=== PATIENT | female | born 1965 | race Caucasian/White ===

== ENCOUNTER → 2016-09-20 | Outpatient (CLI) | payer BC ==
--- NOTE | 2016-09-23 14:13 | Diagnostic Imaging Report ---
Bilateral screening mammogram. The current study was also evaluated with a Computer Aided Detection (CAD) system. INDICATION: Screening. No current complaints stated on the questionnaire. COMPARISON: 11/04/2014. FINDINGS: The breasts are composed of scattered fibroglandular densities. There are occasional benign-appearing calcifications. Allowing for technique and positional differences, no suspicious change is seen. IMPRESSION: No significant change. ACR BI-RADS Category 2: Benign findings. Result letter will be mailed to the patient. Note: At least 10% of breast cancer is not imaged by mammography. Dictated by: Dictated on workstation # [id number]
== END ==
LOC: RAD 10:00
PROVIDERS: ATTEND Family Medicine
DX: Z12.31 Encounter for screening mammogram for malignant neoplasm of breast (principal)
CPT/HCPCS: 77067

== ENCOUNTER 2016-12-15 20:36 | Emergency (ER) | payer BC | END 2016-12-15 20:53 | disposition left against medical advice (07) | LOC: EDUNIT# 20:36 → ER 20:38 | DX: S61.211D Laceration without foreign body of left index finger without damage to nail, subsequent encounter (principal); X58.XXXD Exposure to other specified factors, subsequent encounter ==

== ENCOUNTER 2017-05-12 05:38 | Outpatient (CLI) | payer BC ==
[~2017-05-12] VITALS: Ht 167.6 cm; Wt 84.4 kg
== END 2017-05-12 13:53 ==
LOC: PREOP 05:38
PROVIDERS: ATTEND Surgery
DX: Z01.818 Encounter for other preprocedural examination (principal); Z12.11 Encounter for screening for malignant neoplasm of colon; K60.3 Anal fistula

== ENCOUNTER 2017-05-15 08:29 | Day surgery (SDC) | payer BC ==
[~2017-05-15] VITALS: Ht 167.6 cm; Wt 84.4 kg
[2017-05-15] MEDS ORDERED: NS (IVPB) 50 ML ONE (09:19)
[2017-05-15] MEDS ORDERED: ceFAZolin 1,000 MG (ANCEF) VIAL ONE (09:19)
[2017-05-15] MEDS ORDERED: ceFAZolin INJECTION 1,000 MG in NS (IVPB) 50 ML IV ONE (09:45)
[2017-05-15 09:49] VITALS: BP 122/77
[2017-05-15] MEDS: LACTATED RINGERS 1,000 ML IV PRN ×2 (09:52→12:00)
--- NOTE | 2017-05-15 10:49 | Progress Note-Pre Operative ---
Pre-Operative Progress Note H&P Reviewed The H&P was reviewed, patient examined and no changes noted. Date Seen by Provider: May 15, 2017 Time Seen by Provider: 10:30 Date H&P Reviewed: May 15, 2017 Time H&P Reviewed: :30 Pre-Operative Diagnosis: stool incontinence, anal drainage LIV MOLINA MD May 15, 2017 10:49
[2017-05-15] MEDS ORDERED: ONDANSETRON 4 MG/2 ML (SDV) Z0FRAN IV PRN (11:00)
[2017-05-15] MEDS ORDERED: HYDROcodone/APAP 5 MG/325 MG (LORTAB) TAB PO PRN (11:00)
[2017-05-15] MEDS ORDERED: ACETAMINOPHEN 325 MG TABLET/CAPLET (TYLENOL) PO PRN (11:00)
[2017-05-15] MEDS ORDERED: morphine INJ 10 MG/ML 1ML (SYR OR VIAL) IV PRN (11:00)
[2017-05-15] MEDS ORDERED: BUPIVACAINE 0.5% 30 ML (SENSORCAINE) VIAL ONE (11:03)
[2017-05-15] MEDS ORDERED: LIDOCAINE/EPI 1%-1:200,000 (XYLOCAINE) 10 ML VIAL ONE (11:03)
[2017-05-15] MEDS ORDERED: BUP/EPI 0.5% 1:200,000 (SENSORCAINE) 30 ML VIAL ONE (11:03)
[2017-05-15] MEDS ORDERED: MIDAZOLAM 2 MG/2 ML (VERSED) VIAL ONE (11:11)
[2017-05-15] MEDS ORDERED: fentaNYL INJECTION 100 MCG/2 ML AMP ONE (11:13)
[2017-05-15] MEDS ORDERED: LACTATED RINGERS 0 ML IV ONE (11:26)
[2017-05-15] MEDS ORDERED: proPOfol 200 MG/20 ML (DIPRIVAN) VIAL IV ONE (11:26)
[2017-05-15] MEDS ORDERED: ONDANSETRON 4 MG/2 ML (SDV) Z0FRAN ONE (11:26)
[2017-05-15] MEDS ORDERED: LIDOCAINE PF 2% 5 ML (XYLOCAINE) VIAL ONE (11:26)
[2017-05-15] MEDS ORDERED: SEVOFLURANE (ULTANE) 15 ML INHAL SOLN ONE ×6 (11:26→13:04)
[2017-05-15] MEDS ORDERED: DEXAMETHASONE 10 MG/ML (DECADRON) 1 ML VIAL ONE (11:26)
--- NOTE | 2017-05-15 12:41 | Progress Note-Post Operative ---
Post-Operative Progess Note Surgeon (s)/Neurology Nurse (s) Surgeon SUPRIYA MOLINA M.D. Neurology Nurse: JAYLYN LEE CRATE BUILDER Pre-Operative Diagnosis stool incontinence, anal drainage Post-Operative Diagnosis CHONRONIC STAGE III INTERNAL AND EXTERNAL HEMORRHOIDS, NORMAL COLON AND RECTUM Procedure & Operative Findings Date of Procedure 05/15/17 Procedure Performed/Findings ANAL EXAM UNDER ANESTHESIA, HEMORRHOIDECTOMY, COLONOSCOPY Anesthesia Type GET Estimated Blood Loss Estimated blood loss (mL): MINIMAL Specimens/Packing Specimens Removed HEMORRHOIDS JAYLYN LEE CRATE BUILDER May 15, 2017 12:41 pm
[2017-05-15] MEDS ORDERED: OXYC-201 PO (12:43)
--- NOTE | 2017-05-15 12:47 | Discharge Inst-Surgical ---
D/C Lap Instructions-KIDO New, Converted, or Re-Newed RX: RX on Chart Follow Up Appt in 2 weeks Activity as tolerated No driving for 24 hours No driving while on pain medications Incentive Spirometry use every 2 hours while awake High fiver diet (>25 grams daily) 64 ounces of fluid daily Sitz bath four times daily and after every bowel movement Stool softeners twice to three times daily for soft stools Symptoms to Report: Fever over 101 degree F, Nausea/Vomiting Infection Signs and Symptoms to report: Increased redness, Foul odor of wound, Increased drainage Bathing instructions: May shower If any problems/questions: Contact your physician or go to Emergency Room JAYLYN LEE APRN May 15, 2017 12:47 pm
[2017-05-15] MEDS ORDERED: fentaNYL INJECTION 100 MCG/2 ML AMP IVP PRN (13:15)
[2017-05-15] MEDS ORDERED: HYDROmorphone (DILAUDID) 2 MG/ML VIAL IVP PRN (13:15)
[2017-05-15] MEDS ORDERED: morphine INJ 10 MG/ML 1ML (SYR OR VIAL) IVP PRN (13:15)
[2017-05-15 14:00] VITALS: BP 127/81
[2017-05-15 14:30] VITALS: BP 122/80
[2017-05-15 14:45] VITALS: BP 122/80
[2017-05-15 14:55] VITALS: BP 130/83
--- NOTE | 2017-05-15 17:58 | OPERATIVE REPORT ---
DATE OF SERVICE: 05/15/2017 ATTENDING PRIMARY CARE PHYSICIAN: Dr. Gasca. PREOPERATIVE DIAGNOSES: Stool incontinence, anal drainage, hemorrhoids, screening colonoscopy. POSTOPERATIVE DIAGNOSES: Chronic stage III external and internal hemorrhoidal cushions. Remainder of the rectum and colon were normal. PROCEDURE: Anal exam under anesthesia, hemorrhoidectomy, colonoscopy. SURGEON: Liv Kumar MD CONTRACT OFFICER: Praveen Vivas APRN ANESTHESIA: General laryngeal mask airway. ESTIMATED BLOOD LOSS: Minimal. FINDINGS: Chronic stage III external and internal hemorrhoids. There was a palpable external and internal anal sphincters and the tone appeared to be normal; however, we were unsure of the adequacy of the tone. There were no palpable masses. There were no fistulas or fissures identified. On colonoscopy, the rectum and colon were normal. There were no polyps or any neoplasms identified. DISPOSITION: The patient tolerated the procedure well. INDICATIONS: The patient is a 51-year-old female with perianal drainage and persistent rash in the anoderm region. She reports approximately in 2003 she had her second child and during that time frame, she developed an anal fissure. The anal fissure was symptomatic and because of this, she did opt for surgical therapy, which included a lateral internal sphincterotomy performed in September 2003. After surgery, her fistula did heal. However, over the years and different types of diet, she has noticed development of that feels to be a wetness sensation and leakage around the anal region. She also reports because the drainage there was a significant rash. Sometimes the leakage is stool stain; however, sometimes clear. We are unsure if this is a stool incontinence from her previous sphincterotomy versus the fistula formation. She has also not had a colonoscopy up to this point in her life. She does report a family history of colon cancer with her mother having the disease. DESCRIPTION OF PROCEDURE: The patient was brought to the operating room and after adequate IV pain and sedative medications and general laryngeal mask airway intubation, the patient was placed in the lithotomy position. The perineum was then prepped and draped in standard surgical fashion. A 0.5% Marcaine with epinephrine was then used to proceed to anesthetizing of the hemorrhoidal cushions. Before this, a digital rectal examination was performed and the previous scar from the lateral internal sphincterotomy was identified. There was a palpable ring; however, under anesthesia we were unsure of the competency of the sphincter tone. We then proceeded with the pudendal nerve block. The speculum was then placed in the anus. The anal canal and anoderm were examined. There were no abscesses or fistula tract identified. There were a stage III external and internal hemorrhoids in three different cushions identified, which appeared to be symptomatic. There were no fissures identified. We then proceeded with a formal excision of the hemorrhoidal cushions. All three cushions were excised in a systematic fashion. We first proceeded with placement of a suture just above the internal hemorrhoidal cushion using a 2-0 Vicryl suture. The external and internal hemorrhoidal cushion combination were then excised en bloc using Sonicision with visualization of good hemostasis. The mucosa and anoderm were then reapproximated using the 2-0 Vicryl previously placed suture. We then proceeded with excision and closure of the two other hemorrhoidal cushions in a similar fashion with visualization of good hemostasis. We then proceeded with the colonoscopy portion of the procedure. The endoscope was intubated to the anus and rectum gently insufflated. The endoscope was then advanced to the valves of Valero of the rectum with no polyps or any neoplasms identified. We then proceeded through the sigmoid colon where no diverticulosis identified. The endoscope was then advanced to the remainder of the descending, transverse, ascending colon and the cecum. These segments were normal. There were no polyps or any neoplasms identified. The endoscope was slowly withdrawn taking a second look and suctioning of residual air with no additional findings. The patient tolerated the procedure well. We will start IV and oral pain medications as well as a clear liquid diet. Once she is tolerating clears and has good pain control with oral pain medications and ambulating well, we will discharge her home. She will be instructed to proceed with sitz baths q.i.d. as well as after every bowel movement as well as proceed with stool softeners and fiber supplementation to promote soft stools on a daily basis. She will also need adequate pain control, which we will prescribe to her. We will have her follow up in approximately two weeks. Job ID: [id number] DocumentID: [id number] Dictated Date: 05/15/2017 12:58:21 Rolling Chair Pusher Date: 05/15/2017 17:57:23 Dictated By: LVI KUMAR MD
--- OUTSIDE RECORDS SUMMARY | 2017-05-16 10:44 | XMS REPORT | Continuity of Care Document ---
Author Author [facility] Organization [facility] Address Unknown Phone Unavailable Allergies Active Description Code Type Severity Reaction Onset Reported/Identified Relationship to Patient Clinical Status Yes No Allergy Information Available [id number] Drug Allergy Unknown N/A 2015 Medications There is no data. Problems Date Dx Coded Attending Type Code Diagnosis Diagnosed By 08/07/2014 Ot 793.80 08/07/2014 Ot V76.12 08/07/2014 Ot 611.72 08/07/2014 Ot V76.12 08/07/2014 Ot 721.0 08/07/2014 Ot V76.12 11/17/2014 REBECCA PARKER MD Ot V76.12 06/13/2015 Ot V76.12 06/13/2015 Ot 721.0 06/13/2015 Ot V76.12 06/13/2015 REBECCA PARKER MD Ot V76.12 06/13/2015 REBECCA PARKER MD Ot R10.13 06/19/2015 REBECCA PARKER MD Ot R10.13 06/26/2015 REBECCA PARKER MD Ot R10.13 03/07/2016 Ot 721.0 CERVICAL SPONDYLOSIS 03/07/2016 Ot V76.12 OTH SCREEN MAMMO-MALIGN NEOPLASM OF HONG 03/07/2016 REBECCA PARKER MD Ot V76.12 OTH SCREEN MAMMO-MALIGN NEOPLASM OF HONG 03/07/2016 REBECCA PARKER MD Ot R10.13 EPIGASTRIC PAIN 03/07/2016 Ot 721.0 CERVICAL SPONDYLOSIS 03/07/2016 Ot V76.12 OTH SCREEN MAMMO-MALIGN NEOPLASM OF HONG 03/07/2016 REBECCA PARKER MD Ot V76.12 OTH SCREEN MAMMO-MALIGN NEOPLASM OF HONG 03/07/2016 REBECCA PARKER MD Ot R10.13 EPIGASTRIC PAIN 09/17/2016 Ot V76.12 OTH SCREEN MAMMO-MALIGN NEOPLASM OF HONG 09/17/2016 REBECCA PARKER MD Ot V76.12 OTH SCREEN MAMMO-MALIGN NEOPLASM OF HONG 09/17/2016 REBECCA PARKER MD Ot R10.13 EPIGASTRIC PAIN 09/23/2016 REBECCA PARKER MD Ot Z12.31 ENCNTR SCREEN MAMMOGRAM FOR MALIGNANT NE 09/24/2016 REBECCA PARKER MD Ot Z12.31 ENCNTR SCREEN MAMMOGRAM FOR MALIGNANT NE 10/02/2016 REBECCA PARKER MD Ot Z12.31 ENCNTR SCREEN MAMMOGRAM FOR MALIGNANT NE 12/15/2016 Ot V76.12 OTH SCREEN MAMMO-MALIGN NEOPLASM OF HONG 12/15/2016 REBECCA PARKER MD Ot V76.12 OTH SCREEN MAMMO-MALIGN NEOPLASM OF HONG 12/15/2016 REBECCA PARKER MD Ot R10.13 EPIGASTRIC PAIN 12/15/2016 REBECCA PARKER MD Ot Z12.31 ENCNTR SCREEN MAMMOGRAM FOR MALIGNANT NE 12/15/2016 LUIGI KNAPP MD Ot S61.211D LACERATION W/O FB OF L IDX FNGR W/O GLORIA 12/15/2016 LUIGI KNAPP MD Ot X58.XXXD EXPOSURE TO OTHER SPECIFIED FACTORS, SUB 12/17/2016 LUIGI KNAPP MD Ot S61.211D LACERATION W/O FB OF L IDX FNGR W/O GLORIA 12/17/2016 LUIGI KNAPP MD Ot X58.XXXD EXPOSURE TO OTHER SPECIFIED FACTORS, SUB 12/21/2016 LUIGI KNAPP MD Ot S61.211D LACERATION W/O FB OF L IDX FNGR W/O GLORIA 12/21/2016 LUIGI KNAPP MD Ot X58.XXXD EXPOSURE TO OTHER SPECIFIED FACTORS, SUB 12/31/2016 Ot V76.12 OTH SCREEN MAMMO-MALIGN NEOPLASM OF HONG 12/31/2016 REBECCA PARKER MD Ot V76.12 OTH SCREEN MAMMO-MALIGN NEOPLASM OF HONG 12/31/2016 REBECCA PARKER MD Ot R10.13 EPIGASTRIC PAIN 12/31/2016 REBECCA PARKER MD Ot Z12.31 ENCNTR SCREEN MAMMOGRAM FOR MALIGNANT NE Procedures There is no data. Results There is no data. Encounters ACCT No. Visit Date/Time Discharge Status Pt. Type Provider Facility Loc./Unit Complaint [id number] 12/15/2016 20:38:00 12/15/2016 20:53:00 DIS Emergency LUIGI KNAPP MD [facility] ER L INDEX FINGER LAC [id number] 09/20/2016 10:00:00 09/20/2016 23:59:59 CLS Outpatient REBECCA PARKER MD [facility] RAD SCREENING Z12.13 [id number] 06/13/2015 08:21:00 06/13/2015 23:59:59 CLS Outpatient REBECCA PARKER MD [facility] RAD DYSPEPSIA [id number] 11/04/2014 11:13:00 11/04/2014 23:59:59 CLS Outpatient REBECCA PARKER MD [facility] RAD SCREENING [id number] 05/15/2017 09:30:00 PEN Preadmit LIV MOLINA MD [facility] SDC ANAL FISTULA, SCREENING COLONOSCOPY [id number] 09/09/2011 08:36:00 Document Registration [id number] 10/22/2010 15:27:00 Document Registration [id number] 06/22/2010 10:17:00 Document Registration [id number] 04/03/2009 09:07:00 Document Registration [id number] 03/22/2009 14:46:00 Document Registration
== END 2017-05-15 14:55 | disposition home or self-care (01) ==
LOC: SDC 08:29
PROVIDERS: ATTEND Surgery
DX: K64.2 Third degree hemorrhoids (principal); R15.9 Full incontinence of feces
CPT/HCPCS: 84703; 87081

== ENCOUNTER 2017-09-09 18:44 | Emergency (ER) | payer BC ==
[~2017-09-09] VITALS: Ht 165.1 cm; Wt 81.6 kg
[~2017-09-09 18:44] MED LIST: OXYC-201 PO
--- OUTSIDE RECORDS SUMMARY | 2017-09-09 18:49 | XMS REPORT | Continuity of Care Document ---
Author Author [facility] Organization [facility] Address Unknown Phone Unavailable Allergies Active Description Code Type Severity Reaction Onset Reported/Identified Relationship to Patient Clinical Status Yes No Allergy Information Available [id number] Drug Allergy Unknown N/A 2015 Yes No Known Drug Allergies [id number] Drug Allergy Unknown N/A 05/12/2017 Medications There is no data. Problems Date [...] Ot R10.13 EPIGASTRIC PAIN 12/31/2016 REBECCA PARKER MD, Ot Z12.31 ENCNTR SCREEN MAMMOGRAM FOR MALIGNANT NE 05/08/2017 REBECCA PARKER MD, Ot V76.12 OTH SCREEN MAMMO-MALIGN NEOPLASM OF HONG 05/08/2017 REBECCA PARKER MD Ot R10.13 EPIGASTRIC PAIN 05/08/2017 REBECCA PARKER MD, Ot Z12.31 ENCNTR SCREEN MAMMOGRAM FOR MALIGNANT NE 05/12/2017 LIV MOLINA MD Ot K60.3 ANAL FISTULA 05/12/2017 LIV MOLINA MD Ot Z01.818 ENCOUNTER FOR OTHER PREPROCEDURAL EXAMIN 05/12/2017 LIV MOLINA MD Ot Z12.11 ENCOUNTER FOR SCREENING FOR MALIGNANT NE 05/14/2017 LIV MOLINA MD Ot K60.3 ANAL FISTULA 05/14/2017 LIV MLOINA MD Ot Z01.818 ENCOUNTER FOR OTHER PREPROCEDURAL EXAMIN 05/14/2017 LIV MOLINA MD Ot Z12.11 ENCOUNTER FOR SCREENING FOR MALIGNANT NE 05/15/2017 LIV MOLINA MD Ot K64.2 THIRD DEGREE HEMORRHOIDS 05/15/2017 LIV MOLINA MD Ot R15.9 FULL INCONTINENCE OF FECES 05/29/2017 REBECCA PARKER MD, Ot V76.12 OTH SCREEN MAMMO-MALIGN NEOPLASM OF HONG 05/29/2017 REBECCA PARKER MD Ot R10.13 EPIGASTRIC PAIN 05/29/2017 REBECCA PARKER MD, Ot Z12.31 ENCNTR SCREEN MAMMOGRAM FOR MALIGNANT NE Procedures There is no data. Results Test Result Range Urine beta human chorionic gonadotropin (hCG) measurement - 05/15/17 09:00 Urine beta human chorionic gonadotropin (hCG) measurement NEGATIVE NEGATIVE Methicillin resistant Staphylococcus aureus (MRSA) screening culture - 09:15 Methicillin resistant Staphylococcus aureus (MRSA) screening culture NEG NRG Encounters ACCT No. Visit Date/Time Discharge Status Pt. Type Provider Facility Loc./Unit Complaint [id number] 05/15/2017 08:29:00 05/15/2017 14:55:00 DIS Outpatient LIV MOLINA MD [facility] SDC ANAL FISTULA, SCREENING COLONOSCOPY [id number] 05/12/2017 05:38:00 05/12/2017 13:53:00 DIS Outpatient LIV MOLINA MD [facility] PREOP ANAL FISTULA,SCREENING [id number] 12/15/2016 20:38:00 12/15/2016 20:53:00 DIS Emergency LUIGI KNAPP MD [facility] ER L INDEX FINGER LAC [id number] 09/20/2016 10:00:00 09/20/2016 23:59:59 CLS Outpatient REBECCA PARKER MD [facility] RAD SCREENING Z12.13 [id number] 06/13/2015 08:21:00 06/13/2015 23:59:59 CLS Outpatient REBECCA PARKER MD [facility] RAD DYSPEPSIA [id number] 11/04/2014 11:13:00 11/04/2014 23:59:59 CLS Outpatient REBECCA PARKER MD [facility] RAD SCREENING [id number] 09/09/2011 08:36:00 Document Registration [id number] 10/22/2010 15:27:00 Document Registration [id number] 06/22/2010 10:17:00 Document Registration [id number] 04/03/2009 09:07:00 Document Registration [id number] 03/22/2009 14:46:00 Document Registration
[2017-09-09] MEDS ORDERED: ASPIRIN 81 MG CHEW (CHILDREN'S ASA) PO ONE ×2 (19:00)
--- NOTE | 2017-09-09 19:12 | ED Cardiac General ---
History of Present Illness General Chief Complaint: Chest Pain Stated Complaint: CHEST PAIN Nursing Triage Note: PT TO ROOM 1 PT CO OF CHEST DISCOMFORT RATES 3-4/10, STATES FEELS FULL IN NECK AREA Source: patient, spouse (bharat) Exam Limitations: no limitations History of Present Illness Date Seen by Provider: Sep 09, 2017 Time Seen by Provider: 18:57 Initial Comments The patient presents to the ER by private conveyance with a chief complaint she had some intermittent palpitations going on for the past few years that used to be about once every 6 months but have been gotten more freely and at where she had a couple in the last couple months. They will last about 20-30 minutes take her breath away and make her feel tired and sit down. She says the palpation started about time she got to the ER. She's not having any chest pain but she was having some chest discomfort in her right neck and her right chest and right shoulder at the time of the palpitations. She has no history of coronary disease. She works out eats healthy she is on a vegan diet where she used to be on a full protein diet but she changed to begin to help with her borderline high blood pressure and lose some weight. She does not take any other routine medications, control or pain medicines but she did take a Percocet a couple days ago to help her get some sleep that was left over from a recent hemorrhoidectomy. She has a history of gallbladder removed, fissure repair after childbirth and she had a cyst cut off of her thyroid when she was about [age] year old. Allergies and Home Medications Allergies Coded Allergies: No Known Drug Allergies (Unverified , 05/12/17) Home Medications No Active Prescriptions or Reported Meds Patient Home Medication List Home Medication List Reviewed: Yes Review of Systems Constitutional: No fever, No malaise EENTM: No Blurred Vision, No Double Vision Respiratory: Denies Cough, Denies Shortness of Air Cardiovascular: See HPI, Chest Pain; Denies Edema; Irregular Heart Rate, Palpitations; Denies Syncope Gastrointestinal: Denies Abdomen Distended, Denies Abdominal Pain, Denies Constipated, Denies Diarrhea, Denies Nausea, Denies Poor Fluid Intake, Denies Vomiting Genitourinary: Denies Burning, Denies Discharge Musculoskeletal: No back pain, No joint pain Skin: No pruritus, No rash Psychiatric/Neurological: Denies Headache, Denies Numbness, Denies Paresthesia Past Dkoxmzw-Yfiogc-Lkwygp Hx Patient Social History Alcohol Use: Denies Use Recreational Drug Use: No Smoking Status: Never a Smoker Former Smoker, Quit: May 12, 1997 Recent Foreign Travel: No Contact w/Someone Who Travel: No Recent Infectious Disease Expo: No Recent Hopitalizations: No Seasonal Allergies Seasonal Allergies: No Past Medical History Gallbladder, Tonsillectomy Physical Exam Vital Signs Vital Signs - First Documented 09/09/17 18:45 Temp 97.3 Pulse 88 Resp 18 B/P (MAP) 126/90 (102) Pulse Ox 98 Capillary Refill : Less Than 3 Seconds General Appearance: No Apparent Distress, WD/WN HEENT: PERRL/EOMI, Normal ENT Inspection, Pharynx Normal Neck: Full Range of Motion, Normal Inspection, Non Tender, Supple Respiratory: Chest Non Tender, Lungs Clear, Normal Breath Sounds, No Accessory Muscle Use, No Respiratory Distress Cardiovascular: Regular Rate, Rhythm, No Edema, No Gallop, No JVD, No Murmur, Normal Peripheral Pulses Gastrointestinal: Non Tender, Soft Extremity: Normal Capillary Refill, Normal Inspection, Non Tender, No Calf Tenderness, No Pedal Edema Neurologic/Psychiatric: Alert, Oriented x3 Skin: Normal Color, Warm/Dry Progress/Results/Core Measures Results/Orders Lab Results Laboratory Tests Test 09/09/17 18:50 Range/Units White Blood Count 9.5 4.3-11.0 10^3/uL Red Blood Count 4.41 4.35-5.85 10^6/uL Hemoglobin 13.5 11.5-16.0 G/DL Hematocrit 39 35-52 % Mean Corpuscular Volume 88 80-99 FL Mean Corpuscular Hemoglobin 31 25-34 PG Mean Corpuscular Hemoglobin Concent 35 32-36 G/DL Red Cell Distribution Width 12.9 10.0-14.5 % Platelet Count 212 130-400 10^3/uL Mean Platelet Volume 11.2 H 7.4-10.4 FL Neutrophils (%) (Auto) 62 42-75 % Lymphocytes (%) (Auto) 29 12-44 % Monocytes (%) (Auto) 8 0-12 % Eosinophils (%) (Auto) 1 0-10 % Basophils (%) (Auto) 0 0-10 % Neutrophils # (Auto) 5.9 1.8-7.8 X 10^3 Lymphocytes # (Auto) 2.8 1.0-4.0 X 10^3 Monocytes # (Auto) 0.7 0.0-1.0 X 10^3 Eosinophils # (Auto) 0.1 0.0-0.3 10^3/uL Basophils # (Auto) 0.0 0.0-0.1 10^3/uL Prothrombin Time 13.1 12.2-14.7 SEC INR Comment 1.0 0.8-1.4 Activated Partial Thromboplast Time 32 24-35 SEC D-Dimer 0.30 0.00-0.49 UG/ML Sodium Level 141 135-145 MMOL/L Potassium Level 3.6 3.6-5.0 MMOL/L Chloride Level 107 98-107 MMOL/L Carbon Dioxide Level 24 21-32 MMOL/L Anion Gap 10 5-14 MMOL/L Blood Urea Nitrogen 8 7-18 MG/DL Creatinine 0.75 0.60-1.30 MG/DL Estimat Glomerular Filtration Rate > 60 BUN/Creatinine Ratio 11 Glucose Level 136 H 70-105 MG/DL Calcium Level 9.4 8.5-10.1 MG/DL Magnesium Level 2.0 1.8-2.4 MG/DL Total Bilirubin 0.4 0.1-1.0 MG/DL Aspartate Amino Transf (AST/SGOT) 20 5-34 U/L Alanine Aminotransferase (ALT/SGPT) 17 0-55 U/L Alkaline Phosphatase 66 40-136 U/L Myoglobin 20.4 10.0-92.0 NG/ML Troponin I < 0.30 <0.30 NG/ML B-Type Natriuretic Peptide 36.3 <100.0 PG/ML Total Protein 7.6 6.4-8.2 GM/DL Albumin 4.3 3.2-4.5 GM/DL My Orders Orders - ARIALUIGI J O2 (09/09/17 18:57) Aspirin Chewable Tablet (Baby Aspirin Ch (09/09/17 19:00) Saline Lock/Iv-Start (09/09/17 18:57) Orthostatic Vital Signs (Adult (09/09/17 18:57) Medications Given in ED Current Medications Medications Dose Ordered Sig/Alexandra Route Start Time Stop Time Status Last Admin Dose Admin Aspirin 324 mg ONCE ONCE PO 09/09/17 19:00 09/09/17 19:01 DC 09/09/17 19:35 324 MG Vital Signs/I&O 09/09/17 09/09/17 18:45 19:47 Temp 97.3 Pulse 88 90 88 90 Resp 18 B/P (MAP) 126/90 (102) 113/79 (90) 122/81 (95) 111/80 (90) Pulse Ox 98 Blood Pressure Mean: 102 Progress Progress Note : Time: 19:36 Progress Note We'll plan to make referral for cardiology if we can't find anything acutely wrong and her initial workup for outpatient workup and probably heart monitoring. Initial ECG Impression Date: Sep 09, 2017 Initial ECG Impression Time: 18:47 Initial ECG Rate: 90 Initial ECG Rhythm: Normal Sinus Initial ECG Intervals: Normal Initial ECG Impression: Normal, Nonspecific Changes Initial ECG Comparisson: No Previous ECG Available Comment No acute ST elevation/depression or dysrhythmia seen. Diagnostic Imaging Diagonstic Imaging: Xray Plain Films/CT/US/NM/MRI: chest Reviewed: Reviewed by Me Departure Impression Primary Impression: Heart palpitations Additional Impression: Chest pain Qualified Codes: R07.89 - Other chest pain Disposition: 01 HOME, SELF-CARE Condition: Stable Departure-Patient Inst. Decision time for Depature: 20:10 Referrals: YARI CAICEDO MD [facility] REBECCA PARKER MD (PCP/Family) Primary Care Physician Patient Instructions: Palpitations (DC) Add. Discharge Instructions: Call Dr Caicedo, Cardiology in the AM and request an appt to discuss the palpitations and appropriate workup. If the pain comes back and persists then you should go to the nearest ER for evaluation. Your PCP can also be helpful working this up. Reduce or discontinue your caffeine intake. All discharge instructions reviewed with patient and/or family. Voiced understanding. Scripts No Active Prescriptions or Reported Meds Copy Copies To 1: YARI CAICEDO MD [facility]; REBECCA PARKER MD, TITUS J Sep 09, 2017 19:12
[2017-09-09 19:23] LABS: BASOPHILS % (AUTO) 0 % (0-10); EOSINOPHILS # (AUTO) 0.1 10^3/uL (0.0-0.3); EOSINOPHILS % (AUTO) 1 % (0-10); HEMATOCRIT 39 % (35-52); HEMOGLOBIN 13.5 G/DL (11.5-16.0); LYMPHOCYTES # (AUTO) 2.8 X 10^3 (1.0-4.0); LYMPHOCYTES % (AUTO) 29 % (12-44); MEAN CORPUSCULAR HEMOGLOBIN 31 PG (25-34); MEAN CORPUSCULAR HGB CONC 35 G/DL (32-36); MEAN CORPUSCULAR VOLUME 88 FL (80-99); MEAN PLATELET VOLUME 11.2 FL (7.4-10.4); MONOCYTES # (AUTO) 0.7 X 10^3 (0.0-1.0); MONOCYTES % (AUTO) 8 % (0-12); NEUTROPHILS # (AUTO) 5.9 X 10^3 (1.8-7.8); NEUTROPHILS % (AUTO) 62 % (42-75); PLATELET COUNT 212 10^3/uL (130-400); RED BLOOD COUNT 4.41 10^6/uL (4.35-5.85); RED CELL DISTRIBUTION WIDTH 12.9 % (10.0-14.5); WHITE BLOOD COUNT 9.5 10^3/uL (4.3-11.0)
[2017-09-09 19:35] LABS: PROTHROMBIN TIME PATIENT 13.1 SEC (12.2-14.7)
[2017-09-09 19:44] LABS: ALANINE AMINOTRANSFERASE 17 U/L (0-55); ALBUMIN 4.3 GM/DL (3.2-4.5); ALKALINE PHOSPHATASE 66 U/L (40-136); BILIRUBIN,TOTAL 0.4 MG/DL (0.1-1.0); BUN/CREATININE RATIO 11; CALCIUM 9.4 MG/DL (8.5-10.1); CARBON DIOXIDE 24 MMOL/L (21-32); CHLORIDE 107 MMOL/L (98-107); CREATININE SERUM 0.75 MG/DL (0.60-1.30); GFR ESTIMATED > 60; GLUCOSE 136 MG/DL (70-105); POTASSIUM 3.6 MMOL/L (3.6-5.0); SODIUM 141 MMOL/L (135-145); TOTAL PROTEIN 7.6 GM/DL (6.4-8.2)
[2017-09-09 19:47] VITALS: BP_SYST 111; BP_SYST 113; BP_SYST 122; BP_DIAS 79; BP_DIAS 80; BP_DIAS 81
[2017-09-09 19:52] LABS: MYOGLOBIN SERUM 20.4 NG/ML (10.0-92.0)
--- NOTE | 2017-09-09 20:12 | Diagnostic Imaging Report ---
INDICATION: Chest pain EXAMINATION: Chest 09/09/2017 FINDINGS: The cardiomediastinal silhouette is unremarkable. The pulmonary vasculature is within normal limits. The lungs and pleural spaces are clear. IMPRESSION: No evidence of an acute cardiopulmonary process. Dictated by: Dictated on workstation # [id number]
[2017-09-09 20:21] VITALS: BP 113/74
== END 2017-09-09 20:22 | disposition home or self-care (01) ==
LOC: EDUNIT# 18:44 → ER 18:46
DX: R00.2 Palpitations (principal); R07.89 Other chest pain; Z87.891 Personal history of nicotine dependence; Z90.89 Acquired absence of other organs
CPT/HCPCS: 36415; 71045; 80053; 83735; 83874; 83880; 84484; 85025; 85379; 85610; 85730; 93005; 93041

== ENCOUNTER 2017-10-10 21:00 | Outpatient (CLI) | payer BC | END 2017-10-11 06:35 | disposition home or self-care (01) | LOC: SLEEP 21:00 | PROVIDERS: ATTEND Nurse Practitioner | DX: G47.33 Obstructive sleep apnea (adult) (pediatric) (principal); R06.83 Snoring; R51 Headache | CPT/HCPCS: 95810 ==

== ENCOUNTER → 2017-12-08 | Outpatient (CLI) | payer BC ==
[~2017-12-08] MED LIST changes: -OXYC-201 PO; +OXYC1TAB16 PO
--- NOTE | 2017-12-08 14:41 | Diagnostic Imaging Report ---
Indication: Chest pain PA and lateral views of the chest are obtained. Comparison is made to study of 09/09/2017. FINDINGS: Heart size and pulmonary vascularity are within normal limits, and the lungs are clear, bilaterally. Electronic device is seen anterior to the sternum to left of midline. IMPRESSION: Unremarkable chest. Dictated by: Dictated on workstation # [id number]
== END ==
LOC: RAD 14:23
PROVIDERS: ATTEND Family Medicine
DX: R07.9 Chest pain, unspecified (principal); Z95.818 Presence of other cardiac implants and grafts
CPT/HCPCS: 71046

== ENCOUNTER → 2021-08-01 | Outpatient (CLI) | payer BC ==
--- NOTE | 2021-08-01 14:12 | Diagnostic Imaging Report ---
PROCEDURE: CT head without contrast. TECHNIQUE: Multiple contiguous axial images were obtained through the brain without the use of intravenous contrast. Auto Exposure Controls were utilized during the CT exam to meet ALARA standards for radiation dose reduction. INDICATION: Right-sided headache and ringing in the left ear. No prior studies are available for comparison. The ventricles and sulci are within normal limits. No sulcal effacement or midline shift is detected. No acute intra-axial or extra-axial hemorrhage is detected. Cisterns are patent. Visualized paranasal sinuses demonstrate mucosal thickening in multiple ethmoid air cells. There is mild mucosal thickening of the maxillary sinuses. IMPRESSION: No acute intra-cranial process is detected. Dictated by: Dictated on workstation # [id number]
--- NOTE | 2021-08-01 15:47 | Diagnostic Imaging Report ---
PROCEDURE: US carotid duplex, bilateral. TECHNIQUE: Multiple real-time grayscale images were obtained over the carotid arteries in various projections, bilaterally. Additional spectral analysis and color Doppler duplex images were also obtained. INDICATION: Atrial fibrillation and dizziness. FINDINGS: Very mild plaquing is identified in both carotid systems. Velocities are normal bilaterally. No velocity elevation or stenosis is detected. Both vertebral arteries show antegrade flow. IMPRESSION: No evidence of a hemodynamically significant stenosis. Parameters based on the consensus panel Gonzalez-Scale and Doppler ultrasound criteria published January 2003, Radiology, Volume 229. DOPPLER (peak systolic velocity M/S Right Left CCA 1.34 1.33 ICA Proximal .70 .79 ICA Mid .57 .67 ICA Distal .85 1.36 RATIO .64 1.02 ECA 1.29 1.02 VERT .63 .65 Dictated by: Dictated on workstation # [id number]
== END ==
LOC: RAD 14:15
PROVIDERS: ATTEND Nurse Practitioner Family
DX: J32.9 Chronic sinusitis, unspecified (principal); I48.91 Unspecified atrial fibrillation; H93.90 Unspecified disorder of ear, unspecified ear
CPT/HCPCS: 70450; 93880

== ENCOUNTER 2021-11-13 13:53 | Emergency (ER) | payer BC ==
[~2021-11-13] VITALS: Ht 165 cm; Wt 88.4 kg
--- NOTE | 2021-11-13 14:24 | ED Dyspnea ---
General Chief Complaint: Cardiac/General Problems Stated Complaint: AFIB, Nursing Triage Note: PT TO [facility] 4 WITH C/O SOA SINCE 11/07/21. [facility] SENT PT TO ED TO RULE OUT BLOOD CLOT. PT HX OF AFIB AND HAS BEEN OFF OF MEDS SINCE MAY. PT A&OX4 Source of Information: Patient Exam Limitations: No Limitations History of Present Illness Date Seen by Provider: Nov 13, 2021 Time Seen by Provider: 14:10 Initial Comments Patient is a 56-year-old female who presents to the emergency department today with a chief complaint of feeling short of breath. Patient states that 1 out of every 5 breaths she feels like she cannot take a deep enough breath. She is a patient of Dr. Caicedo and has been seen in the past for her atrial fibrillation. She states over the last several months she has developed what she calls "anaphylaxis" to "everything I put in my mouth". She defines anaphylaxis as a "scratchy throat "a feeling of something "stuck" in her esophagus, and generalized feelings of unwellness. She states she is seeing a physician executive at [facility] in [place] who has diagnosed her with " zero IG A". Her physician executive will not see her again until she is ruled out for a "blood clot". She did do a lot of traveling to [place] over the summer. She took herself off of her anticoagulants and has weaned herself down off of her metoprolol. She is now on 10 mg daily. She is quite hypertensive in the upper 190s over 100 range. She is not hypoxic. Her oxygen saturations are 99%. She denies chest pain, hemoptysis, leg swelling or pain. No history of blood clot. She is currently in a normal sinus rhythm. She called Dr Caicedo's office to ask how she could get r"ruled out" for a blood clot, and they told her if she is SOB to come to the ER. No recent fevers, chills, cough or congestion. No other GI or complaints. All other review of systems reviewed and negative except as stated. Timing/Duration: 1 Week Severity: Moderate Associated Symptoms: Denies Symptoms Allergies and Home Medications Allergies Coded Allergies: No Known Drug Allergies (Unverified , 05/12/17) Patient Home Medication List Home Medication List Reviewed: Yes No Active Prescriptions or Reported Meds Review of Systems Review of Systems Constitutional: see HPI Respiratory: dyspnea on exertion, short of breath Cardiovascular: no symptoms reported Gastrointestinal: no symptoms reported Genitourinary: no symptoms reported Musculoskeletal: no symptoms reported Skin: no symptoms reported All Other Systems Reviewed Negative Unless Noted: Yes Past Ketorus-Vblqje-Vnagog Hx Patient Social History Tobacco Use?: No Substance use?: No Alcohol Use?: No Pt feels they are or have been: No Seasonal Allergies Seasonal Allergies: No Past Medical History Surgery/Hospitalization HX: IGA DEFENCIES Surgeries: Yes (HEMMORHOID) Adenoidectomy, Eye Surgery, Gallbladder, Thyroidectomy Ulcer Physical Exam Vital Signs Vital Signs - First Documented 11/13/21 13:57 Temp 36.2 Pulse 83 Resp 18 B/P (MAP) 194/98 (130) Pulse Ox 97 O2 Delivery Room Air Capillary Refill : Less Than 3 Seconds Height, Weight, BMI Height: 5'5.00" Weight: 180lbs. 0.0oz. 81.837664vg; 32.00 BMI Method:Stated General Appearance: No Apparent Distress, WD/WN HEENT: PERRL/EOMI Neck: Normal Inspection Respiratory: Lungs Clear, Normal Breath Sounds, No Accessory Muscle Use, No Respiratory Distress, Other (99% on RA) Cardiovascular: Regular Rate, Rhythm, Normal Peripheral Pulses Peripheral Pulses: 2+ Radial Pulses (R), 2+ Radial Pulses (L) Gastrointestinal: Non Tender, Soft Extremity: Normal Capillary Refill, Normal Inspection, Normal Range of Motion, Non Tender, No Calf Tenderness, No Pedal Edema Neurologic/Psychiatric: Alert, Oriented x3, Normal Mood/Affect Skin: Normal Color, Warm/Dry Progress/Results/Core Measures Results/Orders Lab Results Laboratory Tests Test 11/13/21 14:38 Range/Units White Blood Count 6.9 4.3-11.0 10^3/uL Red Blood Count 4.54 3.80-5.11 10^6/uL Hemoglobin 12.1 11.5-16.0 g/dL Hematocrit 37 35-52 % Mean Corpuscular Volume 82 80-99 fL Mean Corpuscular Hemoglobin 27 25-34 pg Mean Corpuscular Hemoglobin Concent 32 32-36 g/dL Red Cell Distribution Width 14.6 H 10.0-14.5 % Platelet Count 202 130-400 10^3/uL Mean Platelet Volume 11.9 9.0-12.2 fL Immature Granulocyte % (Auto) 0 % Neutrophils (%) (Auto) 61 42-75 % Lymphocytes (%) (Auto) 30 12-44 % Monocytes (%) (Auto) 7 0-12 % Eosinophils (%) (Auto) 1 0-10 % Basophils (%) (Auto) 0 0-10 % Neutrophils # (Auto) 4.2 1.8-7.8 10^3/uL Lymphocytes # (Auto) 2.0 1.0-4.0 10^3/uL Monocytes # (Auto) 0.5 0.0-1.0 10^3/uL Eosinophils # (Auto) 0.1 0.0-0.3 10^3/uL Basophils # (Auto) 0.0 0.0-0.1 10^3/uL Immature Granulocyte # (Auto) 0.0 0.0-0.1 10^3/uL D-Dimer <= 0.27 0.00-0.49 UG/ML Sodium Level 138 135-145 MMOL/L Potassium Level 3.9 3.6-5.0 MMOL/L Chloride Level 106 98-107 MMOL/L Carbon Dioxide Level 22 21-32 MMOL/L Anion Gap 10 5-14 MMOL/L Blood Urea Nitrogen 10 7-18 MG/DL Creatinine 1.02 0.60-1.30 MG/DL Estimat Glomerular Filtration Rate 65 BUN/Creatinine Ratio 10 Glucose Level 104 70-105 MG/DL Calcium Level 9.4 8.5-10.1 MG/DL My Orders Orders - BENOIT LAGOS MD Ekg Tracing (11/13/21 13:58) Ed Iv/Invasive Line Start (11/13/21 14:17) Cbc With Automated Diff (11/13/21 14:17) Basic Metabolic Panel (11/13/21 14:17) Fibrin Degradation Products (11/13/21 14:17) Vital Signs/I&O 11/13/21 13:57 Temp 36.2 Pulse 83 Resp 18 B/P (MAP) 194/98 (130) Pulse Ox 97 O2 Delivery Room Air Blood Pressure Mean: 130 Progress Progress Note : Time: 16:03 Progress Note Patient's labs have been reviewed and are all within normal limits. She is not anemic, her electrolytes are normal. Her D-dimer is also undetectable. Her sats have been 99% throughout her stay. She is demonstrated no increased work of breathing, wheezing or distress. I have reassured her that she has no clinical or objective findings to warrant further studies from the emergency department. She is stable in my point of view for follow-up with her physician executive. All questions are sought and answered. Return precautions given she verbalized understanding. Patient is stable for discharge. Initial ECG Impression Date: Nov 13, 2021 Initial ECG Impression Time: 14:04 Initial ECG Rate: 78 Initial ECG Rhythm: Normal Sinus Initial ECG Intervals: Normal Initial ECG Impression: Normal Departure Impression Primary Impression: Dyspnea Qualified Codes: R06.00 - Dyspnea, unspecified Disposition: 01 HOME, SELF-CARE Condition: Stable Departure-Patient Inst. Decision time for Depature: 16:04 Referrals: REBECCA PARKER MD (PCP/Family) Primary Care Physician Patient Instructions: Shortness of Breath, Adult ED Add. Discharge Instructions: Follow up with your primary care doctor/Master Fisher. Return to the Emergency Department for any new, concerning or emergent complaints. Scripts No Active Prescriptions or Reported Meds Copy Copies To 1: REBECCA PARKER MD, KATHRYN M MD Nov 13, 2021 14:24
[2021-11-13 14:41] LABS: BASOPHILS % (AUTO) 0 % (0-10); EOSINOPHILS # (AUTO) 0.1 10^3/uL (0.0-0.3); EOSINOPHILS % (AUTO) 1 % (0-10); HEMATOCRIT 37 % (35-52); HEMOGLOBIN 12.1 g/dL (11.5-16.0); LYMPHOCYTES % (AUTO) 30 % (12-44); MEAN CORPUSCULAR HEMOGLOBIN 27 pg (25-34); MEAN CORPUSCULAR HGB CONC 32 g/dL (32-36); MEAN CORPUSCULAR VOLUME 82 fL (80-99); MEAN PLATELET VOLUME 11.9 fL (9.0-12.2); MONOCYTES # (AUTO) 0.5 10^3/uL (0.0-1.0); MONOCYTES % (AUTO) 7 % (0-12); NEUTROPHILS # (AUTO) 4.2 10^3/uL (1.8-7.8); NEUTROPHILS % (AUTO) 61 % (42-75); PLATELET COUNT 202 10^3/uL (130-400); WHITE BLOOD COUNT 6.9 10^3/uL (4.3-11.0)
[2021-11-13 14:57] LABS: POTASSIUM 3.9 MMOL/L (3.6-5.0)
[2021-11-13 14:58] LABS: CALCIUM 9.4 MG/DL (8.5-10.1)
[2021-11-13 15:02] LABS: CREATININE SERUM 1.02 MG/DL (0.60-1.30)
[2021-11-13 16:19] VITALS: BP 129/80
== END 2021-11-13 16:19 | disposition home or self-care (01) ==
LOC: EDUNIT# 13:53 → ER 13:54
DX: R06.00 Dyspnea, unspecified (principal); I10 Essential (primary) hypertension; I48.91 Unspecified atrial fibrillation; Z79.01 Long term (current) use of anticoagulants; Z79.899 Other long term (current) drug therapy
CPT/HCPCS: 36415; 80048; 85025; 85379; 93005

== ENCOUNTER → 2022-02-12 | Day surgery (SDC) | payer BC ==
[~2022-02-12] VITALS: Ht 167.6 cm; Wt 88.5 kg
[~2022-02-12] MED LIST changes: +LIDOCAINE 1% INJ 20 ML VIAL ONE
[2022-02-12 11:28] VITALS: BP 138/78
--- NOTE | 2022-02-12 12:53 | Cardiac Procedure Note-CS/ASA ---
Pre-Procedure Note Pre-Op Procedure Note Date H&P Reviewed: Feb 12, 2022 Time H&P Reviewed: 11:00 History & Physical: H&P Reviewed, No changes noted Pre-Operative Diagnosis: ILR removal per specific patient request Conscious Sedation Pre-Proced ASA Score 3 For ASA 3 and 4: Consider anesthesia and medical clearance. Also, for patients with a history of failed moderate sedation consider anesthesia. Airway Lungs Heart ASA score ASA 1: a normal healthy patient ASA 2: a patient with a mild systemic disease (mid diabetes, controlled hypertension, obesity ASA 3: a patient with a severe systemic disease that limits activity (angina, COPD, prior Myocardial infarction) ASA 4: a patient with an incapacitating disease that is a constant threat to life (CHF, renal failure) ASA 5: a moribund patient not expected to survive 24 hrs. (ruptured aneurysm) ASA 6: a declared brain- patient whose organs are being harvested. For emergent operations, add the letter E after the classification Mallampati Classification Grade 2 Sedation Plan Analgesia, Amnesia, Plan communicated to team members The patient is an appropriate candidate to undergo the planned procedure, sedation, and anesthesia. The patient immediately re-assessed prior to indication. YARI HALL MD FACP FAC CCDS Feb 12, 2022 12:53
--- NOTE | 2022-02-12 22:18 | OPERATIVE REPORT ---
DATE OF SERVICE: 02/12/2022 PROCEDURE: Implantable loop recorder explantation. INDICATIONS: The patient is a 56-year-old lady, who has had an implantable loop recorder in place for palpitations for a few years. She now wants it out. Per her specific request, the procedure was performed. DESCRIPTION OF PROCEDURE: [facility] The left prepectoral area, the site of device implantation was prepared and draped in the usual sterile fashion. Sharp and blunt dissection was used to remove the device from the pocket. The incision was closed with an absorbable 3.0 Vicryl. She tolerated the procedure well. Job ID: [id number] DocumentID: [id number] Dictated Date: 02/12/2022 12:45:07 Assembly Instructions Writer Date: 02/12/2022 22:16:00 Dictated By: YARI HALL MD; VINCENT; FACP; FACC;
== END ==
LOC: CATH 11:03
PROVIDERS: ATTEND Internal Medicine Cardiovascular Disease
DX: Z45.89 Encounter for adjustment and management of other implanted devices (principal); I48.0 Paroxysmal atrial fibrillation; Z87.891 Personal history of nicotine dependence
CPT/HCPCS: 33286

== ENCOUNTER 2023-01-01 11:51 | Day surgery (SDC) | payer BC ==
[~2023-01-01] VITALS: Ht 157.5 cm; Wt 89.6 kg
[~2023-01-01 11:51] MED LIST changes: +ALPR1TAB7 PO; +FLUO20TA28 PO; +GABA-491 PO; -LIDOCAINE 1% INJ 20 ML VIAL ONE; +MELA5CAP PO; +MTP25TSR PO
[2023-01-01] MEDS ORDERED: LACTATED RINGERS 1,000 ML 1,000 ML IV STA (12:02)
[2023-01-01] MEDS ORDERED: LIDOCAINE JELLY 2% 6 ML SYRINGE ONE ×2 (12:17→12:39)
[2023-01-01 12:20] VITALS: BP 115/75
--- NOTE | 2023-01-01 12:33 | Progress Note-Pre Operative ---
Pre-Operative Progress Note Date of Available H&P: Jan 01, 2023 Date H&P Reviewed: Jan 01, 2023 Time H&P Reviewed: 12:00 History & Physical: No changes noted Pre-Operative Diagnosis: screening o LIV MOLINA MD Jan 01, 2023 12:33
--- NOTE | 2023-01-01 12:35 | Discharge Inst-Surgical ---
D/C Lap Instructions-TRACY Follow Up Activity as tolerated High Fiber Diet 25g or more per day Avoid Alcohol, Caffeine, Spicy [place] and Acid foods. Drink 64 fluid oz or more of fluids per day. Symptoms to Report: Fever over 101 degree F, Nausea/Vomiting If any problems/questions: Contact your physician or go to Emergency Room LIV MOLINA MD Jan 01, 2023 12:35
[2023-01-01] MEDS ORDERED: ONDANSETRON 4 MG ORAL DISSOLVE TABLET PO PRN (12:45)
[2023-01-01] MEDS ORDERED: ONDANSETRON INJECTION 4 MG/2 ML (SDV) IVP PRN (12:45)
[2023-01-01] MEDS ORDERED: LIDOCAINE JELLY 2% 6 ML SYRINGE MM PRN (13:00)
[2023-01-01 13:05] VITALS: BP 98/56
[2023-01-01 13:10] VITALS: BP 98/56
--- NOTE | 2023-01-01 13:23 | Progress Note-Post Operative ---
Post-Operative Progess Note Surgeon (s)/Alterations Workroom Clerk (s) Surgeon LIV MOLINA MD Alterations Workroom Clerk: none Pre-Operative Diagnosis screening colo Post-Operative Diagnosis mild sigmoid diverticulosis. Procedure & Operative Findings Date of Procedure 01/01/23 Procedure Performed/Findings colonoscopy Anesthesia Type mac Estimated Blood Loss Estimated blood loss (mL): minimal Specimens/Packing Specimens Removed none LIV MOLINA MD Jan 01, 2023 13:23
--- NOTE | 2023-01-01 13:42 | Anesthesia-General Post-Op ---
MAC Patient Condition Mental Status/LOC: Same as Preop Cardiovascular: Satisfactory Nausea/Vomiting: Absent Respiratory: Satisfactory Pain: Controlled Complications: Absent Post Op Complications Complications None Follow Up Care/Instructions Patient Instructions None needed. Anesthesiology Discharge Order Discharge Order Patient is doing well, no complaints, stable vital signs, no apparent adverse anesthesia problems. No complications reported per nursing. TERESA NUÑEZ CRNA Jan 01, 2023 13:42
[2023-01-01 13:45] VITALS: BP 98/56
--- NOTE | 2023-01-01 23:23 | OPERATIVE REPORT ---
DATE OF SERVICE: 01/01/2023 ATTENDING PRIMARY CARE PHYSICIAN: Jere Gasca MD PREOPERATIVE DIAGNOSIS: Screening colonoscopy. POSTOPERATIVE DIAGNOSIS: Mild sigmoid diverticulosis. PROCEDURE: Colonoscopy. SURGEON: Liv Molina MD ANESTHESIA: Monitored anesthesia care. ESTIMATED BLOOD LOSS: Minimal. FINDINGS: Mild sigmoid diverticulosis. DISPOSITION: The patient tolerated the procedure well. INDICATIONS: The patient is a 57-year-old female known to us. She had a history of anal fissures after the of her second child and she underwent a lateral internal sphincterotomy in 2003. Since that time, she has had some issues with incontinence. On 05/15/17, she underwent an anal exam under anesthesia and underwent a hemorrhoidectomy as well as a colonoscopy. She states that there is no redness, erythema, or any drainage from the perianal region. She is in need of another screening colonoscopy at this point. She does report a family history of colon cancer with her mother having the disease. DESCRIPTION OF PROCEDURE: The patient was brought to the endoscopy suite and laid in the left lateral decubitus position. After adequate IV pain and sedative medications and monitored anesthesia care, a digital rectal examination was performed. No significant hemorrhoids identified. Normal sphincter tone was felt and there were no fistulous tracts or any inflammatory changes in the perianal region. The endoscope was then intubated into the anus, rectum gently insufflated. The endoscope was then advanced through the valves of Valero of the rectum with no polyps or any neoplasms identified. Through the sigmoid colon, mild sigmoid diverticulosis was identified. The endoscope was then advanced through the remainder of the descending, transverse and ascending colon to the cecum, which were normal. There were no polyps or any neoplasms identified throughout the colon or rectum. The endoscope was slowly withdrawn while taking a second look and suctioning of residual air with no additional findings. The patient tolerated the procedure well. We will recommend continued medical management with a high-fiber diet with at least 25 grams of fiber daily as well as significant amounts of water to promote soft consistency stools on a daily basis. Due to her first-degree family history of colon cancer, we will recommend a followup colonoscopy in approximately 5 years. Job ID: [id number] DocumentID: [id number] Dictated Date: 01/01/2023 13:09:09 Dump Motorman Date: 01/01/2023 23:21:00 Dictated By: LIV MOLINA MD
== END 2023-01-01 13:45 | disposition home or self-care (01) ==
LOC: ENDO 11:51
PROVIDERS: ATTEND Surgery
DX: Z12.11 Encounter for screening for malignant neoplasm of colon (principal); K57.30 Diverticulosis of large intestine without perforation or abscess without bleeding; Z80.0 Family history of malignant neoplasm of digestive organs; Z87.891 Personal history of nicotine dependence; E66.9 Obesity, unspecified; Z68.36 Body mass index [BMI] 36.0-36.9, adult